=== PATIENT | female | born 1990 | race Caucasian/White ===

== ENCOUNTER → 2018-12-22 | Outpatient (CLI) | payer MEDICAID | LOC: CIMAGING 09:58 | PROVIDERS: ATTEND Family Medicine | DX: M54.6 Pain in thoracic spine (principal) | CPT/HCPCS: 72070-PO ==

== ENCOUNTER → 2019-02-06 | Outpatient (CLI) | payer MEDICAID | LOC: CIMAGING 07:18 | PROVIDERS: ATTEND Family Medicine | DX: K21.9 Gastro-esophageal reflux disease without esophagitis (principal); R10.12 Left upper quadrant pain; R10.13 Epigastric pain; Z87.19 Personal history of other diseases of the digestive system | CPT/HCPCS: 76700-PO ==